=== PATIENT | male | born 1930 | race Caucasian/White ===

== ENCOUNTER 2018-03-04 10:08 | Emergency (ER) | payer OTHER ==
[~2018-03-04] VITALS: Ht 177.8 cm; Wt 95.3 kg
[~2018-03-04 10:08] MED LIST: ASPIR 8181 MG PO; ATORVASTATIN CA40 MG PO; BENADRYL25 MG PO; CIPRO500 M1 PO; COLACE100 MG PO; COZAAR 50 MG TA50 M2 PO; HYDROCORTISONE30 G9 RECTAL; LASIX 20 MG TAB20 MG PO; MIRALAX17 GM PO; TERAZOSIN HCL5 MG PO; TOPROL XL25 MG PO
[2018-03-04] MEDS ORDERED: NORVASC10 MG PO (10:28)
[2018-03-04 10:41] LABS: ABSOLUTE BASOPHILS 0.1 thou/uL (0.0-0.2); ABSOLUTE EOSINOPHILS 0.3 thou/uL (0.0-0.7); ABSOLUTE LYMPHOCYTES 1.6 thou/uL (0.8-5.3); ABSOLUTE MONOCYTES 0.7 thou/uL (0.0-1.2); ABSOLUTE NEUTROPHILS 4.7 thou/uL (1.6-8.1); BASOPHILS 1.2 %; EOSINOPHILS 4.1 %; HEMATOCRIT 34.2 % (42.0-52.0); HEMOGLOBIN 11.2 gm/dL (14.0-18.0); LYMPHOCYTES 21.4 %; MCH 29.8 pg (26.0-34.0); MCHC 32.7 g/dL (28.0-37.0); MCV 91.1 fL (80.0-100.0); MPV 8.2 fl. (7.2-11.1); NUCLEATED RBCS 0 /100WBC; PLATELET COUNT* 213 thou/uL (150-400); POLYS 64.3 %; RBC 3.75 mil/uL (4.50-6.00); RDW-CV 13.9 % (10.5-14.5); WBC 7.3 thou/uL (4.0-11.0)
[2018-03-04 10:44] LABS: URINE BILIRUBIN NEGATIVE (Negative); URINE BLOOD TRACE (Negative); URINE CLARITY CLEAR; URINE COLOR YELLOW; URINE GLUCOSE-RANDOM NEGATIVE (Negative); URINE KETONES NEGATIVE (Negative); URINE LEUKOCYTES 3+ (Negative); URINE NITRITE NEGATIVE (Negative); URINE PROTEIN NEGATIVE (Negative); URINE UROBILINOGEN 0.2 E.U./dl (0.2-1.0)
[2018-03-04 10:52] LABS: BACTERIA 1-9 Few /HPF (None Seen); CASTS None Seen /LPF (None Seen); CRYSTALS None Seen /LPF (None Seen); MUCUS 0-3 Light strn/LPF (None Seen); SQUAMOUS 0-3 Few /LPF (0-3); URINE RBC 0-2 Rare /HPF (0-2); URINE WBC >25 Many /HPF (0-5); WBC CLUMPS Moderate (None Seen)
[2018-03-04 11:08] LABS: ANION GAP 9 mmol/L (7-16); BUN 46 mg/dL (7-18); CALCIUM 9.1 mg/dL (8.5-10.1); CHLORIDE 103 mmol/L (98-107); CO2 23 mmol/L (21-32); CREATININE 1.7 mg/dL (0.6-1.3); GLUCOSE 113 mg/dL (70-99); POTASSIUM 4.6 mmol/L (3.5-5.1); SODIUM 135 mmol/L (136-145)
[2018-03-04 11:15] LABS: ALBUMIN 4.3 g/dL (3.4-5.0); ALKALINE PHOSPHATASE 77 U/L (46-116); AMYLASE 68 U/L (25-115); LIPASE 127 U/L (73-393); SGOT 21 U/L (15-37); SGPT 26 U/L (30-65); TOTAL BILIRUBIN 0.5 mg/dL (<0.1-1.0); TOTAL PROTEIN 7.7 g/dL (6.4-8.2); TROPONIN-I LEVEL <0.06 ng/mL (<0.06)
[2018-03-04 14:35] VITALS: BP 113/62
--- NOTE | 2018-03-04 17:37 | EKG ---
[place] [address] ELECTROCARDIOGRAM REPORT Name: OSCAR MAR Room: [facility]#: [id number] Admission: 03/04/18 Attend Phys: Discharge: 03/04/18 Date of : 32 Report #: [id number] THIS REPORT FOR: //name// [facility] ED Test Date: 2018-03-04 Test Time: 10:35:34 Pat Name: OSCAR MAR Department: Room: Gender: M Catalog Librarian: BERNICE : 1930 Requested By: Jessica Dalton Order Number: [id number] MD: Raphael Huddleston Measurements Intervals [place] Rate: 62 P: 225 [place]: 133 QRS: -21 QRSD: 157 T: 157 QT: 442 QTc: 449 Interpretive Statements Sinus or ectopic atrial rhythm Left bundle branch block Baseline wander in lead(s) V3 No previous ECG available for comparison Electronically Signed On 03-04-2018 17:37:35 CDT by Raphael Huddleston [email or web address] <ELECTRONICALLY SIGNED> By: Raphael Huddleston MD, [facility] 03/04/18 1737 1035 1035 Raphael Huddleston MD, FACC /EPI
== END 2018-03-04 14:35 | disposition home or self-care (01) ==
LOC: M.ERS 10:08
PROVIDERS: Physician Assistant Surgical
DX: K59.00 Constipation, unspecified (principal); I10 Essential (primary) hypertension; E78.00 Pure hypercholesterolemia, unspecified

== ENCOUNTER 2019-01-07 07:46 | Inpatient (IN) | payer OTHER ==
[~2019-01-07] VITALS: Ht 180.3 cm; Wt 93.9 kg
[~2019-01-07 07:46] MED LIST changes: +NORVASC10 MG PO
[2019-01-07 07:51] VITALS: BP 155/58
[2019-01-07] MEDS ORDERED: ANTIHISTAMINE (07:59)
[2019-01-07] MEDS ORDERED: PERCOCET PO (08:01)
[2019-01-07 08:15] LABS: HEMOGLOBIN 10.5 gm/dL (14.0-18.0); MCH 30.4 pg (26.0-34.0); MCHC 33.8 g/dL (28.0-37.0); MPV 8.5 fl. (7.2-11.1); NUCLEATED RBCS 0 /100WBC; PLATELET COUNT* 173 thou/uL (150-400); RBC 3.44 mil/uL (4.50-6.00); RDW-CV 13.5 % (10.5-14.5); WBC 13.2 thou/uL (4.0-11.0)
[2019-01-07 08:23] LABS: ANION GAP 10 mmol/L (7-16); BUN 39 mg/dL (7-18); CALCIUM 8.6 mg/dL (8.5-10.1); CO2 22 mmol/L (21-32); CREATININE 1.7 mg/dL (0.6-1.3); GLUCOSE 148 mg/dL (70-99)
[2019-01-07 08:24] LABS: APTT 34.9 Seconds (25.0-31.3); INR 1.1; PROTIME 11.2 Seconds (9.20-11.50)
[2019-01-07 08:34] LABS: ALBUMIN 3.5 g/dL (3.4-5.0); ALKALINE PHOSPHATASE 77 U/L (46-116); NT-PRO BRAIN NAT PEPTIDE 1309 pg/mL (<300); SGOT 24 U/L (15-37); SGPT 35 U/L (30-65); TOTAL BILIRUBIN 0.8 mg/dL (<0.1-1.0); TOTAL PROTEIN 7.4 g/dL (6.4-8.2); TROPONIN-I LEVEL <0.06 ng/mL (<0.06)
[2019-01-07 08:51] LABS: ABSOLUTE LYMPHOCYTES 0.5 thou/uL (0.8-5.3); ABSOLUTE MONOCYTES 0.3 thou/uL (0.0-1.2); ABSOLUTE NEUTROPHILS 12.4 thou/uL (1.6-8.1); ATYPICAL LYMPHS 1 %; PLATELET ESTIMATE ADEQUATE
[2019-01-07 09:03] LABS: POTASSIUM 4.5 mmol/L (3.5-5.1); SODIUM 144 mmol/L (136-145)
[2019-01-07 09:08] LABS: CHLORIDE 109 mmol/L (98-107)
[2019-01-07 14:31] VITALS: BP 128/41
[2019-01-07 14:45] VITALS: BP 139/40
--- NOTE | 2019-01-07 17:16 | EKG ---
[place] [address] ELECTROCARDIOGRAM REPORT Name: OSCAR MAR Room: [address] ADM IN .R.#: [id number] Admission: 01/07/19 Attend Phys: Nahid Rutledge MD Discharge: Date of : 31 Report #: [id number] THIS REPORT FOR: //name// [facility] ED Test Date: 2019-01-07 Test Time: 08:11:09 Pat Name: OSCAR MAR Department: Room: [facility] Gender: M Quill Machine Operator: : 1930 Requested By: Justin Reese Order Number: [id number] MD: Mario Chester Measurements Intervals [place] Rate: 88 P: -19 [place]: 174 QRS: -27 QRSD: 156 T: 145 QT: 392 QTc: 475 Interpretive Statements Sinus rhythm Left bundle branch block Compared to ECG 03/04/2018 10:35:34 Ectopic atrial rhythm no longer present Electronically Signed On 01-07-2019 17:16:07 CDT by Mario Chester [email or web address] <ELECTRONICALLY SIGNED> By: Mario Chester MD, [facility] 01/07/19 1716 0811 0 Mario Chester MD, [facility] /EPI
--- NOTE | 2019-01-07 19:48 | NUR ---
PATIENT ARRIVED FROM ER THIS AFTERNOON. HISTORY, ASSESSMENT AND VITALS COMPLETED AND DOCUMENTED. PATIENT DENIES ANY PAIN. PATIENT HAD COMPLAINTS OF CHILLS THIS EVENING, TYLENOL GIVEN AND CHILLS SUBSIDED. PATIENT IS UP WITH WALKER AND GAIT BELT HOWEVER WAS SHORT OF AIR WITH EXERTION AND OXYGEN SATS DROPPED INTO 80'S WITH THE ACTIVITY. OXYGEN IS ON AT 3L/NC. BREATHING TREATMENT GIVEN. PATIENT DENIES ANY NEEDS AT THIS TIME. CALL LIGHT WITHI REACH. WILL CONTINUE TO MONITOR.
[2019-01-07 20:15] VITALS: BP 115/41
[2019-01-08 00:02] VITALS: BP 123/47
[2019-01-08 03:42] VITALS: BP 146/48
[2019-01-08 03:45] LABS: ABSOLUTE LYMPHOCYTES 1.1 thou/uL (0.8-5.3); ABSOLUTE NEUTROPHILS 9.6 thou/uL (1.6-8.1); BASOPHILS 0.2 %; EOSINOPHILS 0.3 %; HEMATOCRIT 27.2 % (42.0-52.0); HEMOGLOBIN 8.8 gm/dL (14.0-18.0); LYMPHOCYTES 9.6 %; MCH 29.5 pg (26.0-34.0); MCHC 32.3 g/dL (28.0-37.0); MCV 91.1 fL (80.0-100.0); MONOCYTES 8.5 %; MPV 8.2 fl. (7.2-11.1); NUCLEATED RBCS 0 /100WBC; PLATELET COUNT* 148 thou/uL (150-400); POLYS 81.4 %; RBC 2.99 mil/uL (4.50-6.00); RDW-CV 13.8 % (10.5-14.5); WBC 11.8 thou/uL (4.0-11.0)
[2019-01-08 04:09] LABS: ALBUMIN 2.5 g/dL (3.4-5.0); CALCIUM 7.7 mg/dL (8.5-10.1); CREATININE 1.6 mg/dL (0.6-1.3); POTASSIUM 4.3 mmol/L (3.5-5.1); TOTAL BILIRUBIN 0.4 mg/dL (<0.1-1.0); TOTAL PROTEIN 5.8 g/dL (6.4-8.2)
--- NOTE | 2019-01-08 05:09 | NUR ---
PT SLEPT ON AND OFF THIS SHIFT. ASSESSMENT DOCUMENTED. MEDS GIVEN PER E-SEP. IV PATENT, FLUIDS INFUSING. NO REPORTS OF PAIN OR NAUSEA. 3L NC WORN THIS SHIFT. SHIRLEY IN PLACE. WILL CONTINUE WITH PLAN OF CARE.
[2019-01-08 07:55] VITALS: BP 143/43
[2019-01-08 11:33] VITALS: BP 130/40
--- NOTE | 2019-01-08 13:15 | NUR ---
cm completed initial assessment to discuss dc planning. pt had O2 applied upon cm's arrival. pt a&o. and other family members present at time of assessment. cm assessed to see pt had o2 or neb at home, pt's denies. currently their is no plan for pt to d/c home w/O2. pt denies hx w/snf or hh. pt has walker. currently no needs identified. goal is to d/c back home where pt lives w/spouse. pt has good family support. cm to remain available to assist as needed.
[2019-01-08 15:00] VITALS: BP 131/38
--- NOTE | 2019-01-08 16:40 | NUR ---
PATIENT RESTING IN BED. PATIENT IS UP WITH ASSIST WITH WALKER AND GAIT BELT. PATIENT HAS COMPLAINTS OF NEUROPATHY PAIN TO FEET, TYLENOL AND LIDODERM PATCH GIVEN. PATIENT HAS GOOD APPETITE. PATIENT IS SHORT OF AIR WITH EXERTION, OXYGEN IS ON AT 2L/NC. PATIENT DENIES ANY NEEDS AT THIS TIME. CALL LIGHT WITHIN REACH. FAMILY AT BEDSIDE. WILL CONTINUE TO MONITOR.
--- NOTE | 2019-01-08 17:00 | NUR ---
PATIENT TRANSFERRING TO ROOM 232 DUE TO UNIT CLOSURE. REPORT GIVEN TO ENZO KU.
--- NOTE | 2019-01-08 18:45 | NUR ---
VSS, ASSUMED CARE OF PT FROM 3W NURSE, PT WAS PLACED ON MOITOR, ON 2L NC AND UP WITH ONE, WILL FOLLOW WITH PLAN OF CARE, PT STATES RIGHT FOOT PAIN, WILL FOLLOW WITH PLAN OF CARE.
[2019-01-08 20:00] VITALS: BP 101/41
[2019-01-09] VITALS: BP 121/88
[2019-01-09 04:00] VITALS: BP 164/60
--- NOTE | 2019-01-09 04:24 | NUR ---
ASSUMED PT CARE AT APPROX 1930. PT IS AWAKE AND ORIENTED X4. VSS ON 2L/NC, NO DESATURATIONS NOTED. HAND CUTTER APPRENTICE IN PLACE TRACING SR WITH BBB. ASSESSMENT DONE AND CHARTED. PT DENIES SOA/ PAIN OF THE MOMENT. PT WAS ABLE TO SLEEP MOST OF THE NIGHT. CALL LIGHT WITHIN REACH. HOURLY ROUNDING DONE FOR PT SAFETY.
--- NOTE | 2019-01-09 08:00 | NUR ---
RECEIVED REPORT FROM PATT AND ASSUMED CARE OF PT @ 3411.PT IS A/O X4,VSS,TRACING AFIB WITH BBB ON THE MONITOR.PT REMAINS ON 3L O2 NC.SHIRLEY SECURE AND PATENT.IV PATENT AND SALINE LOCKED.IV ANTIBIOTICS GIVEN.PT IS CALM AND COOPERATIVE WITH C/O GENERALIZED PAIN-MEDICATIONS GIVEN.PT LEFT RESTING IN BED WITH CALL LIGHT AND FALL PRECAUTIONS IN PLACE.FAMILY AT BEDSIDE. WILL CONTINUE TO MONITOR.
[2019-01-09 08:38] VITALS: BP 156/54
[2019-01-09 12:19] VITALS: BP 104/45
[2019-01-09 12:27] LABS: ABSOLUTE EOSINOPHILS 0.1 thou/uL (0.0-0.7); ABSOLUTE LYMPHOCYTES 0.6 thou/uL (0.8-5.3); ABSOLUTE MONOCYTES 0.9 thou/uL (0.0-1.2); BASOPHILS 0.1 %; EOSINOPHILS 1.2 %; HEMATOCRIT 27.7 % (42.0-52.0); HEMOGLOBIN 9.2 gm/dL (14.0-18.0); LYMPHOCYTES 6.6 %; MCH 29.9 pg (26.0-34.0); MCHC 33.3 g/dL (28.0-37.0); MCV 89.7 fL (80.0-100.0); MPV 8.6 fl. (7.2-11.1); NUCLEATED RBCS 0 /100WBC; PLATELET COUNT* 178 thou/uL (150-400); POLYS 83.1 %; RBC 3.09 mil/uL (4.50-6.00); RDW-CV 13.4 % (10.5-14.5); WBC 9.6 thou/uL (4.0-11.0)
[2019-01-09 12:37] LABS: ALBUMIN 2.3 g/dL (3.4-5.0); CALCIUM 8.1 mg/dL (8.5-10.1); CREATININE 1.6 mg/dL (0.6-1.3); POTASSIUM 4.2 mmol/L (3.5-5.1); TOTAL BILIRUBIN 0.3 mg/dL (<0.1-1.0)
[2019-01-09 15:43] VITALS: BP 134/48
--- NOTE | 2019-01-09 16:49 | NUR ---
VSS.CARDIAC MONITORING IN PLACE WITH NO CHANGES.PT REMAINS ON 3L O2 NC.CXR COMPELTED.PT PROGRESSING TOWARDS GOALS.PAIN MANAGED WELL WITH PO MEDICATIONS.IV PATENT AND SALINE LOCKED.SHIRLEY SECURE AND PATENT.HOURLY ROUNDING COMPLETED FOR PT SAFETY.CALL LIGHT AND FALL PRECAUTIONS IN PLACE.FAMILY AT BEDSIDE.WILL CONTINUE TO MONITOR FOR DURATION OF SHIFT.
[2019-01-09 20:00] VITALS: BP 135/55
[2019-01-10] VITALS (7 sets, daily range): BP systolic 106–143; BP diastolic 40–66
[2019-01-10 04:42] LABS: ABSOLUTE LYMPHOCYTES 0.4 thou/uL (0.8-5.3); ABSOLUTE MONOCYTES 0.3 thou/uL (0.0-1.2); ABSOLUTE NEUTROPHILS 9.5 thou/uL (1.6-8.1); BASOPHILS 0.1 %; HEMATOCRIT 29.4 % (42.0-52.0); HEMOGLOBIN 9.7 gm/dL (14.0-18.0); LYMPHOCYTES 3.7 %; MCH 29.4 pg (26.0-34.0); MCHC 32.9 g/dL (28.0-37.0); MCV 89.4 fL (80.0-100.0); MONOCYTES 3.1 %; MPV 8.7 fl. (7.2-11.1); NUCLEATED RBCS 0 /100WBC; PLATELET COUNT* 197 thou/uL (150-400); POLYS 93.1 %; RBC 3.29 mil/uL (4.50-6.00); RDW-CV 13.6 % (10.5-14.5); WBC 10.2 thou/uL (4.0-11.0)
[2019-01-10 04:57] LABS: CALCIUM 8.6 mg/dL (8.5-10.1); CREATININE 1.6 mg/dL (0.6-1.3)
[2019-01-10 04:58] LABS: PREALBUMIN 10.3 mg/dL (18.0-35.7)
--- NOTE | 2019-01-10 06:00 | NUR ---
ASSUMED PT CARE AT APPROX 1930. PT IS AWAKE AND ORIENTED X4. VSS ON 3L OF O2/NC, NO DESATURATIONS NOTED. ASSESSMENT DONE AND CHARTED. NEW ONSET AFIB (110-130'S) NOTED ON TELE AT APPROX 0000, PT DENIES CHEST PAIN/SOA. DR SNIDER INFORMED. CARDIZEM BOLUS GIVEN PER MAR AND CARDIZEM DRIP STARTED AT 5mg/hr PER MAR ORDERED. PT REMAINED TRACING AFIB BUT IS MORE RATE CONTROLLED (80-90bpm) PT CLOSELY MONITORED. CALL LIGHT WITHIN REACH. HOURLY ROUNDING DONE FOR PT SAFETY.
[2019-01-10 12:58] LABS: TROPONIN-I LEVEL 0.08 ng/mL (<0.06)
--- NOTE | 2019-01-10 18:22 | NUR ---
PT A/O. TELE TRACKING AFIB AND ALL VSS ON 3L. DILT INFUSING PER PROTOCOL. DENIES CP, SOA. C/O FOOT PAIN-MEDICATED PER EMAR. SHIRLEY TO DD WITH ADEQUATE UO. FAMILY AT BEDSIDE FOR MOST OF SHIFT. EDUCATED ON SAFETY AND PLAN OF CARE. PLEASE SEE ASSESSMENT FOR ADDITIONAL INFORMATION. WILL CONT TO MONITOR
--- NOTE | 2019-01-10 20:41 | CON ---
[address] [address] CONSULTATION Name: OSCAR MAR Room: [address] IN .R.#: [id number] Admission: 01/07/19 Attend Phys: Nahid Rutledge MD Discharge: Date of : 31 Report #: [id number] THIS REPORT FOR: //name// CC: Nahid Escalante HISTORY OF PRESENT ILLNESS: I was asked by Dr. Rutledge to see this 88-year-old white male in cardiology consultation for evaluation and treatment of atrial fibrillation. Additionally, this man has left bundle-branch block. He was admitted with pneumonia on 01/07/2019. He has been getting DuoNebs. Last night, he went into atrial fibrillation with a rapid ventricular response. He was started on diltiazem drip and his heart rate has been controlled. This man also may possibly have congestive heart failure as his chest x-ray today is worse than it was on 01/07/2019. Initially, he had a focal infiltrate in the right lung base on 01/07/2019. Today, he has worsening interstitial infiltrates and small bilateral pleural effusions. The x-ray was most concerning for pulmonary edema and possible interstitial pneumonia, however, could not be excluded. He does have hemoptysis now. He is having a small amount of hemoptysis. He denies orthopnea or PND. He does have some dyspnea on exertion, he does not have shortness of breath at rest, although he is on oxygen. He was hypoxemic and remains hypoxemic without oxygen. He has not had any chest pain or angina. He has never had a history of atrial fibrillation or congestive heart failure or coronary artery disease. He had negative troponins on admission x 2. He has not had a BNP, one will be ordered. PAST MEDICAL HISTORY: Remarkable for essential hypertension and hypercholesterolemia. 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 He does not have diabetes. HOME MEDICATIONS: Include aspirin 81 mg daily, atorvastatin 40 mg daily, docusate 100 mg b.i.d., furosemide 20 mg daily, losartan 100 mg daily, metoprolol succinate extended release 25 mg daily, Percocet 1 tablet p.r.n., terazosin 5 mg daily and an antihistamine of unknown medication p.r.n. ALLERGIES: HE IS ALLERGIC TO LISINOPRIL. FAMILY HISTORY: Remarkable for his father at age 70 of heart failure. Mother at age 97 of diverticulitis. SOCIAL HISTORY: Unremarkable. He is retired from [email or web address], retired 30 years ago. He does not smoke, drink or use illegal drugs. REVIEW OF SYSTEMS: Likewise unremarkable. His only symptoms have been his neuropathy in his lower extremities and his recent cough that he had for a couple of weeks before presenting with pneumonia. He also did have fever, chills and sweats with his pneumonia. Review of systems is negative for some 40 different complaints in 14 different system categories [place] [address] CONSULTATION Name: OSCAR MAR Room: [address] IN [facility]#: [id number] Admission: 01/07/19 Attend Phys: Nahid Rutledge MD Discharge: Date of : 31 Report #: [id number] system, general, respiratory, cardiovascular, endocrine, gastrointestinal, genitourinary, hematologic, lymphatic, allergic, immunologic, psychiatric, musculoskeletal, skin, eyes, ears, nose, mouth, and throat. Please see our review of system form for details and negatives in review of systems. PHYSICAL EXAMINATION: GENERAL: He presents as a well-developed, well-nourished white male in no acute distress. VITAL SIGNS: His pulse is 115 and irregular, blood pressure is 120/68, respirations were 17 and regular and his temperature was 98.2. HEENT: His head was atraumatic. Eyes clear. NECK: Supple. There is no jugular venous distention or hepatojugular reflux. Thyroid is not enlarged. There is no adenopathy. SKIN: Warm and dry. Mucous membranes are moist. LUNGS: Clear in the left lung; however, his breath sounds are decreased bilaterally and there is an increased expiratory phase bilaterally. He does have rales in his right mid lung field. There may also be some egophony there. HEART: Revealed normal first and second heart sound. There is no S4, no S3, no murmurs, rubs, thrills, heaves or gallops. PMI was not displaced. Heart sounds were somewhat distant. The rhythm was irregularly irregular and the rate was approximately 100. ABDOMEN: Soft, flat, nontender, no palpable masses, no organomegaly. EXTREMITIES: Reveal no cyanosis, clubbing or edema. NEUROLOGIC: The patient mentated normally, talked normally, moved all extremities normally. LABORATORY DATA: His EKG shows from last night atrial fibrillation with a rapid ventricular response of 116 and there is left bundle branch block. Chest x-ray as described. IMPRESSION: 1. Atrial fibrillation with a rapid ventricular response, now controlled with diltiazem. 2. Left bundle branch block. 3. Pneumonia. 4. Possible congestive heart failure. 5. Essential hypertension. 6. Hypercholesterolemia. 7. Acute respiratory failure. RECOMMENDATION: I continue the diltiazem. Check a BNP and a troponin. I had stopped the DuoNebs and given Xopenex instead. I [place] [address] CONSULTATION Name: OSCAR MAR Room: [address] IN M.R.#: [id number] Admission: 01/07/19 Attend Phys: Nahid Rutledge MD Discharge: Date of : 31 Report #: [id number] Thank you very much for asking me to see the patient. If there are any questions, please feel free to contact me. <ELECTRONICALLY SIGNED> By: Gabriel Clifton MD, FACC 01/10/19 2041 1135 [id number]. Devaughn Orr MD, FACC /nt
[2019-01-11] VITALS: BP 137/46
--- NOTE | 2019-01-11 03:48 | NUR ---
ASSUMED PT CARE AT APPROX 193. PT IS AWAKE AND ORIENTED X4. VSS ON 2L OF O2/NC, NO DESATURATIONS NOTED. ATOMIC PROCESS ENGINEER IN PLACE, STILL TRACING AFIB AND IS RATE CONTROLLED. CARDIZEM DRIP STOPPED AT APPROX 193. CLOSELY MONITORED. CALL LIGHT WITHIN REACH. HOURLY ROUNDING DONE FOR PT SAFETY. FALL PRECAUTIONS IN PLACE.
[2019-01-11 04:00] VITALS: BP 138/91
[2019-01-11 04:35] LABS: ABSOLUTE LYMPHOCYTES 0.8 thou/uL (0.8-5.3); ABSOLUTE MONOCYTES 0.9 thou/uL (0.0-1.2); ABSOLUTE NEUTROPHILS 12.5 thou/uL (1.6-8.1); BASOPHILS 0.1 %; HEMATOCRIT 26.9 % (42.0-52.0); HEMOGLOBIN 8.9 gm/dL (14.0-18.0); LYMPHOCYTES 5.4 %; MCH 29.6 pg (26.0-34.0); MCHC 33.2 g/dL (28.0-37.0); MONOCYTES 6.1 %; NUCLEATED RBCS 0 /100WBC; PLATELET COUNT* 212 thou/uL (150-400); POLYS 88.4 %; RBC 3.02 mil/uL (4.50-6.00); WBC 14.1 thou/uL (4.0-11.0)
[2019-01-11 04:45] LABS: CALCIUM 8.4 mg/dL (8.5-10.1); CREATININE 1.6 mg/dL (0.6-1.3); POTASSIUM 4.1 mmol/L (3.5-5.1)
[2019-01-11 07:44] VITALS: BP 162/57
[2019-01-11 11:56] VITALS: BP 153/58
--- NOTE | 2019-01-11 13:56 | EKG ---
[place] [address] ELECTROCARDIOGRAM REPORT Name: OSCAR MAR Room: [address] ADM IN .R.#: [id number] Admission: 01/07/19 Attend Phys: Nahid Rutledge MD Discharge: Date of : 31 Report #: [id number] THIS REPORT FOR: //name// [facility] Test Date: 2019-01-10 Test Time: 00:28:00 Pat Name: OSCAR MAR Department: Room: [address] Gender: M Information Assurance Officer: JCRUZ : 1930 Requested By: Nahid Rutledge Order Number: [id number] MD: Gabriel Clifton Measurements Intervals [place] Rate: 116 P: NV: QRS: -30 QRSD: 149 T: 155 QT: 372 QTc: 517 Interpretive Statements Atrial fibrillation Left bundle branch block Compared to ECG 01/07/2019 08:11:09 Sinus rhythm no longer present Electronically Signed On 01-11-2019 13:55:51 CDT by Gabriel Clifton [email or web address] <ELECTRONICALLY SIGNED> By: Gabriel Clifton MD, [facility] 01/11/19 1355 0028 0028 Gabriel Clifton MD, [facility] /EPI
--- NOTE | 2019-01-11 15:52 | 2DMMODE ---
[place] [address] 2 D/M-MODE ECHOCARDIOGRAM Name: OSCAR MAR Room: [address] IN [facility]#: [id number] Admission: 01/07/19 Attend Phys: Nahid Rutledge, Discharge: Date of : 31 Date of Service: 01/11/19 1551 Report #: [id number] THIS REPORT FOR: //name// APPROVED REPORT Study performed: 01/11/2019 11:46:03 EXAM: Comprehensive 2D, Doppler, and color-flow Echocardiogram Patient Location: In-Patient Room #: [facility] Status: routine BSA: 2.14 HR: 69 bpm BP: 138/91 mmHg Rhythm: NSR Other Information Study Quality: Fair Indications Atrial Fibrillation 2D Dimensions IVSd: 14.24 (7-11mm) LVOT Diam: 20.28 (18-24mm) LVDd: 53.55 mm PWd: 12.08 (7-11mm) Ascending Ao: 33.67 (22-36mm) LVDs: 35.25 (25-40mm) Aortic Root: 33.57 mm Volumes Left Atrial Volume (Systole) LA ESV Index: 32.20 mL/m2 Aortic Valve AoV Peak Naman.: 2.24 m/s AO Peak Gr.: 20.07 mmHg LVOT Max P.22 mmHg AO Mean Gr.: 11.78 mmHg LVOT Mean P.77 mmHg LVOT Max V: 0.90 m/s AO V2 VTI: 52.01 cm LVOT Mean V: 0.62 m/s JUANA (VTI): 1.38 cm2 LVOT V1 VTI: 22.23 cm Mitral Valve E/A Ratio: 0.72 MV Decel. Time: 171.97 ms MV E Max Naman.: 1.00 m/[place] [address] 2 D/M-MODE ECHOCARDIOGRAM Name: OSCAR MAR Room: [address] IN [facility]#: [id number] Admission: 01/07/19 Attend Phys: Nahid Rutledge, Discharge: Date of : 31 Date of Service: 01/11/19 1551 Report #: [id number] MV PHT: 49.87 ms MVA (PHT): 4.41 cm2 TDI E/Lateral E': 8.33 Lateral E' Naman.: 0.12 m/s Pulmonary Valve PV Peak Naman.: 1.06 m/s PV Peak Gr.: 4.45 mmHg Tricuspid Valve RAP Estimate: 5.00 mmHg TR Peak Gr.: 33.75 mmHg RVSP: 38.00 mmHg PA Pressure: 38.00 mmHg Left Ventricle The left ventricle is normal size. There is normal LV segmental wall motion. Mild concentric left ventricular hypertrophy. Left ventricular systolic function is normal. The left ventricular ejection fraction is within the normal range. LVEF is 60-65%. Grade I - abnormal relaxation pattern. Right Ventricle The right ventricle is normal size. The right ventricular systolic function is normal. Atria Left atrium is mildly dilated. The right atrium size is normal. Aortic Valve Aortic valve leaflets are moderately thickened. No aortic regurgitation is present. Mild aortic stenosis. Mitral Valve The mitral valve is normal in structure. Mild mitral regurgitation. No evidence of mitral valve stenosis. Tricuspid Valve The tricuspid valve is normal in structure. Trace tricuspid regurgitation. estimated pa pressure 45 mm Hg Pulmonic Valve The pulmonary valve is normal in structure. Mild [place] [address] 2 D/M-MODE ECHOCARDIOGRAM Name: OSCAR MAR Room: [address]#: [id number] Admission: 01/07/19 Attend Phys: Nahid Rutledge, Discharge: Date of : 31 Date of Service: 01/11/19 1551 Report #: [id number] Great Vessels The aortic root is normal in size. IVC is not visualized. Pericardium There is no pericardial effusion. <Conclusion> Mild concentric left ventricular hypertrophy. LVEF is 60-65%. Left atrium is mildly dilated. Mild aortic stenosis. Mild mitral regurgitation. Trace tricuspid regurgitation. estimated pa pressure 45 mm Hg <ELECTRONICALLY SIGNED> By: Gabriel Clifton MD, [facility] 01/11/19 155 155 155 Gabriel Clifton MD, FAC /INF
[2019-01-11 16:18] VITALS: BP 144/45
--- NOTE | 2019-01-11 18:08 | NUR ---
ASSESSMENT COMPLETE. PT ALERT AND ORIENTED X4. PT GIVEN PRN PAIN MEDICATION ONCE. CARDIOLOGY CHANGED MEDICATIONS AND ORDERED EKG AND LABS IN AM. IV LASIX X1 THIS EVENING. PT IS ON 2L PER NC, SOA WITH EXERTION. PT HAD SHOWER THIS AM. REDNESS AND WOUND NOTED TO BUTTOCKS. PICTURE TAKEN. CREAM APPLIED. Q2 TURN AND WAFLLE CUSHION WHILE IN CHAIR. PT TOLERATING MEALS. UP ONE ASSIST WITH WALKER. SR WITH BBB ON TELE MONITOR, VSS. SEE ASSESSMENT AND VITALS FOR OTHER DETAILS. CALL LIGHT WITHIN REACH. WILL CONTINUE PLAN OF CARE
[2019-01-11 20:47] VITALS: BP 127/56
[2019-01-12] VITALS: BP 99/57
[2019-01-12 04:00] VITALS: BP 126/50
[2019-01-12 05:26] LABS: CALCIUM 8.9 mg/dL (8.5-10.1); CREATININE 1.6 mg/dL (0.6-1.3); POTASSIUM 4.5 mmol/L (3.5-5.1)
--- NOTE | 2019-01-12 07:10 | NUR ---
CHANGE OF SHIFT BEDSIDE REPORT GIVEN PATIENT SEEN AT BEDSIDE IN BED ASLEEP ASSUMED PATIENT CARE
[2019-01-12 08:00] VITALS: BP 130/56
--- NOTE | 2019-01-12 08:57 | NUR ---
PT IS ABLE TO COMMUNICATE HIS NEEDS TO STAFF WITH MINOR DIFFICULTY; HE IS OHLS-BT-ATNGXOY. HE HAS DENIED THE NEED FOR PAIN MEDICATION UP TO THIS TIME. SHIRLEY IS PATENT. PT DID HAVE A LARGE BM LAST NIGHT, HE HAD PREVIOUSLY C/O CONSTIPATION.
--- NOTE | 2019-01-12 11:39 | EKG ---
[place] [address] ELECTROCARDIOGRAM REPORT Name: OSCAR MAR Room: [address] ADM IN M.R.#: [id number] Admission: 01/07/19 Attend Phys: Nahid Rutledge MD Discharge: Date of : 31 Report #: [id number] THIS REPORT FOR: //name// [facility] Test Date: 2019-01-12 Test Time: 09:36:10 Pat Name: OSCAR MAR Department: Room: [address] Gender: M Nail Cutter: : 1930 Requested By: Gabriel Clifton Order Number: [id number] Reading : Matthew Rothman Measurements Intervals [place] Rate: 72 P: -30 [place]: 154 QRS: -27 QRSD: 150 T: 156 QT: 449 QTc: 492 Interpretive Statements Sinus rhythm Left bundle branch block Compared to ECG 01/10/2019 00:28:00 Atrial fibrillation no longer present Electronically Signed On 01-12-2019 11:38:58 CDT by Matthew Rothman [email or web address] <ELECTRONICALLY SIGNED> By: Matthew Rothman MD, [facility] 01/12/19 1138 0936 0936 Matthew Rothman MD, [facility] /EPI
[2019-01-12 11:49] VITALS: BP 133/50
--- NOTE | 2019-01-12 14:51 | NUR ---
SW met with pt and pt to discuss possible dc plan for tomorrow. Pt continues to hope that he will not need oxygen at home at dc. SW explained respiratory and nursing will work with pt and testing as needed. SW to continue to follow. Pt did not express any other dc needs.
[2019-01-12 16:00] VITALS: BP 101/59
[2019-01-12 20:08] VITALS: BP 144/51
[2019-01-13] VITALS: BP 106/46
[2019-01-13 04:00] VITALS: BP 128/48
[2019-01-13 05:16] LABS: HEMATOCRIT 29.6 % (42.0-52.0); HEMOGLOBIN 9.9 gm/dL (14.0-18.0); MCH 29.9 pg (26.0-34.0); MCHC 33.3 g/dL (28.0-37.0); MCV 89.6 fL (80.0-100.0); MPV 8.3 fl. (7.2-11.1); NUCLEATED RBCS 0 /100WBC; PLATELET COUNT* 276 thou/uL (150-400); RBC 3.31 mil/uL (4.50-6.00); RDW-CV 13.8 % (10.5-14.5); WBC 9.6 thou/uL (4.0-11.0)
[2019-01-13 05:23] LABS: CALCIUM 8.6 mg/dL (8.5-10.1); CREATININE 1.6 mg/dL (0.6-1.3); MAGNESIUM 2.1 mg/dL (1.8-2.4); POTASSIUM 4.2 mmol/L (3.5-5.1)
--- NOTE | 2019-01-13 05:33 | NUR ---
PT IS ABLE TO COMMUNICATE HIS NEEDS TO STAFF WITH ONLY MINOR DIFFICULTY; HE IS FORGETFUL AT TIMES AND IS ACCO-SM-MBMWDKE. CURRENT PAIN MEDICATION REGIMEN HAS BEEN ADEQUATE FOR CONTROLLING HIS PAIN UP TO THIS TIME. SHIRLEY IS PATENT. POSSIBLE DISCHARGE LATER TODAY.
[2019-01-13 05:49] LABS: ABSOLUTE EOSINOPHILS 0.5 thou/uL (0.0-0.7); ABSOLUTE LYMPHOCYTES 1.5 thou/uL (0.8-5.3); ABSOLUTE NEUTROPHILS 6.6 thou/uL (1.6-8.1); LARGE PLATELETS OCCASIONAL; PLATELET ESTIMATE ADEQUATE
[2019-01-13 05:50] LABS: OVALOCYTES 1+
[2019-01-13 05:51] LABS: ANISOCYTOSIS 1+; POIKILOCYTOSIS 1+
--- NOTE | 2019-01-13 07:15 | NUR ---
CHANGE OF SHIFT BEDSIE REPORT GIVEN PATIENT SEEN UP IN CHAIR ASSUMED PATIENT CARE
[2019-01-13 08:00] VITALS: BP 140/64
--- NOTE | 2019-01-13 11:07 | EKG ---
[place] [address] ELECTROCARDIOGRAM REPORT Name: OSCAR MAR Room: [address] ADM IN .R.#: [id number] Admission: 01/07/19 Attend Phys: Nahid Rutledge MD Discharge: Date of : 31 Report #: [id number] THIS REPORT FOR: //name// [facility] Test Date: 2019-01-13 Test Time: 08:30:59 Pat Name: OSCAR MAR Department: Room: [address] Gender: M Levi Maker: : 1930 Requested By: Gabriel Clifton Order Number: [id number] [id number] MD: Gabriel Clifton Measurements Intervals [place] Rate: 60 P: MT: QRS: -22 QRSD: 155 T: 133 QT: 488 QTc: 488 Interpretive Statements sinus rhythm Left bundle branch block Compared to ECG 01/12/2019 09:36:10 no change Electronically Signed On 01-13-2019 11:07:32 CDT by Gabriel Clifton [email or web address] <ELECTRONICALLY SIGNED> By: Gabriel Clifton MD, [facility] 01/13/19 1107 9 9 Gabriel Clifton MD, FACC /EPI
[2019-01-13] MEDS ORDERED: LEVAQUIN 750 M750 MG PO (11:39)
[2019-01-13] MEDS ORDERED: SORINE 80 MG TA80 M1 PO (11:39)
[2019-01-13] MEDS ORDERED: NEXIUM40 MG PO (11:40)
[2019-01-13] MEDS ORDERED: DEMADEX20 MG PO (11:40)
[2019-01-13] MEDS ORDERED: DOK PLUS TABLE1 EACH PO (11:40)
[2019-01-13] MEDS ORDERED: ELIQUIS2.5 MG PO (11:41)
[2019-01-13] MEDS ORDERED: PRENATAL PO (11:42)
[2019-01-13 11:59] VITALS: BP 124/67
--- NOTE | 2019-01-13 13:45 | NUR ---
LATHE OPERATOR CONTACT LENS SPOKE TO THE PATIENT AND HIS SPOUSE TO DISCUSS DISCHARGE PLANNING NEEDS AND HH AT D/C. PATIENT INITIALLY RESISTANT, BUT WITH SPOUSE ENCOURAGEMENT HE ACCEPTS HH. D/C SLIDE MAKER ASSISTED THE PATIENT IN COMPLETING CHOICE OF VENDOR FORM, AND PATIENT PATIENT ACCEPTS HH WITH [facility], HE HAD NO HH PREFERENCE. D/C SLIDE MAKER PLACED COPY OF FORM ON PATIENT'S CHART. D/C SLIDE MAKER CALLED AND INFORMED [facility] OF THE HH REFERRAL AND FAXED PATIENT'S CLINICAL INFO AND D/C ORDERS. CM WILL REMAIN AVIALABLE TO ASSIST AND FOLLOW NEEDED. [facility] PHONE: [phone]
[2019-01-13 13:47] VITALS: BP 124/67
--- NOTE | 2019-01-13 14:05 | NUR ---
patient discharged to home with h/h instructions given, acknoledged, signed copies given iv and heart monitor removed personal belongings returned patient assisted out via wc good condition to waiting car
== END 2019-01-13 14:21 | disposition home health service (06) | DRG 871 ==
LOC: M.ERS 07:46 → M.TBA-ER 10:00 → M.3W 10:00 → M.2W 01-08 17:27
PROVIDERS: Family Medicine; Internal Medicine; Internal Medicine Cardiovascular Disease; ADMIT Internal Medicine
DX: A41.9 Sepsis, unspecified organism (principal); J15.6 Pneumonia due to other Gram-negative bacteria; J96.01 Acute respiratory failure with hypoxia; I50.33 Acute on chronic diastolic (congestive) heart failure; R04.2 Hemoptysis; I13.0 Hypertensive heart and chronic kidney disease with heart failure and stage 1 through stage 4 chronic kidney disease, or unspecified chronic kidney disease; D68.59 Other primary thrombophilia; E53.8 Deficiency of other specified B group vitamins; D50.9 Iron deficiency anemia, unspecified; E83.42 Hypomagnesemia; Z88.8 Allergy status to other drugs, medicaments and biological substances; D63.8 Anemia in other chronic diseases classified elsewhere; I35.0 Nonrheumatic aortic (valve) stenosis; I44.7 Left bundle-branch block, unspecified; E78.00 Pure hypercholesterolemia, unspecified; I48.91 Unspecified atrial fibrillation; H10.9 Unspecified conjunctivitis; N18.3 Chronic kidney disease, stage 3 (moderate); K59.09 Other constipation; G62.9 Polyneuropathy, unspecified; Z89.421 Acquired absence of other right toe(s); Z79.82 Long term (current) use of aspirin

== ENCOUNTER → 2019-07-30 | Outpatient (CLI) | payer MEDICARE ==
[~2019-07-30] MED LIST changes: +ANTIHISTAMINE; +DEMADEX20 MG PO; +DOK PLUS TABLE1 EACH PO; +ELIQUIS2.5 MG PO; +LEVAQUIN 750 M750 MG PO; +NEXIUM40 MG PO; +PERCOCET PO; +PRENATAL PO; +SORINE 80 MG TA80 M1 PO
[2019-07-30 09:12] LABS: CALCIUM 9.2 mg/dL (8.5-10.1); CREATININE 1.7 mg/dL (0.6-1.3); POTASSIUM 4.6 mmol/L (3.5-5.1)
== END ==
LOC: M.LAB 08:42
PROVIDERS: Nurse Practitioner
DX: I12.9 Hypertensive chronic kidney disease with stage 1 through stage 4 chronic kidney disease, or unspecified chronic kidney disease (principal); N18.9 Chronic kidney disease, unspecified

== ENCOUNTER 2019-08-13 09:26 | Emergency (ER) | payer MEDICARE ==
[~2019-08-13] VITALS: Ht 177.8 cm; Wt 81.7 kg
[2019-08-13] MEDS ORDERED: FUROSEMIDE 20 M20 MG PO (09:41)
[2019-08-13] MEDS ORDERED: PROSCAR 5MG TABL5 M1 PO (09:42)
[2019-08-13] MEDS ORDERED: FLOMAX0.4 MG PO (09:42)
[2019-08-13 09:55] LABS: ABSOLUTE BASOPHILS 0.1 thou/uL (0.0-0.2); ABSOLUTE EOSINOPHILS 0.4 thou/uL (0.0-0.7); ABSOLUTE LYMPHOCYTES 1.8 thou/uL (0.8-5.3); ABSOLUTE MONOCYTES 0.7 thou/uL (0.0-1.2); ABSOLUTE NEUTROPHILS 4.3 thou/uL (1.6-8.1); BASOPHILS 1.6 %; EOSINOPHILS 5.1 %; HEMATOCRIT 37.1 % (42.0-52.0); HEMOGLOBIN 12.5 gm/dL (14.0-18.0); LYMPHOCYTES 24.9 %; MCH 30.7 pg (26.0-34.0); MCHC 33.6 g/dL (28.0-37.0); MCV 91.5 fL (80.0-100.0); MONOCYTES 9.4 %; MPV 8.7 fl. (7.2-11.1); NUCLEATED RBCS 0 /100WBC; PLATELET COUNT* 195 thou/uL (150-400); RBC 4.05 mil/uL (4.50-6.00); RDW-CV 13.5 % (10.5-14.5); WBC 7.2 thou/uL (4.0-11.0)
[2019-08-13 10:06] LABS: CALCIUM 9.6 mg/dL (8.5-10.1); CREATININE 1.8 mg/dL (0.6-1.3)
[2019-08-13 10:08] LABS: APTT 29.6 Seconds (25.0-31.3); PROTIME 10.7 Seconds (9.20-11.50)
[2019-08-13 10:09] LABS: BE -4.5 mmol/L (-2 to +3); PCO2 36.5 mmHg (35.0-45.0); PO2 80.2 mmHg (75.0-100.0); pH 7.362 (7.340-7.450)
[2019-08-13 10:22] LABS: ALBUMIN 4.2 g/dL (3.4-5.0); TOTAL BILIRUBIN 0.4 mg/dL (<0.1-1.0)
[2019-08-13 11:21] VITALS: BP 172/59
--- NOTE | 2019-08-13 13:06 | EKG ---
[place] [address] ELECTROCARDIOGRAM REPORT Name: OSCAR MAR Room: [facility]#: [id number] Admission: 08/13/19 Attend Phys: Discharge: 08/13/19 Date of : 31 Report #: [id number] THIS REPORT FOR: //name// [facility] ED Test Date: 2019-08-13 Test Time: 10:16:04 Pat Name: OSCAR MAR Department: Room: Gender: M Physical Design Engineer: : 1930 Requested By: Michael Tom Order Number: [id number] MD: Raphael Huddleston Measurements Intervals [place] Rate: 55 P: -56 MA: 151 QRS: -35 QRSD: 164 T: 200 QT: 495 QTc: 474 Interpretive Statements Sinus rhythm Left bundle branch block Compared to ECG 01/13/2019 08:30:59 no significant change Electronically Signed On 08-13-2019 13:06:01 SECTIONAL BELT MOLD ASSEMBLER by Raphael Huddleston [email or web address] <ELECTRONICALLY SIGNED> By: Raphael Huddleston MD, [facility] 08/13/19 1306 1016 15 Raphael Huddleston MD, FACC /EPI
== END 2019-08-13 11:22 | disposition home or self-care (01) ==
LOC: M.ERS 09:26
PROVIDERS: Emergency Medicine
DX: I10 Essential (primary) hypertension (principal); E78.00 Pure hypercholesterolemia, unspecified; Z88.8 Allergy status to other drugs, medicaments and biological substances